=== PATIENT | female | born 1960 | race Caucasian/White ===

== ENCOUNTER 2016-06-22 11:15 | Outpatient (CLI) | payer MEDICAID | END 2016-06-22 11:16 | disposition home or self-care (01) | DX: R10.32 Left lower quadrant pain (principal) ==

== ENCOUNTER 2016-07-27 10:50 | Emergency (ER) | payer MEDICAID ==
[2016-07-27] MEDS ORDERED: IBUPROFEN 400 MG TABLET PO STA (12:13)
[2016-07-27] MEDS ORDERED: ACETAMINOPHEN 325 MG TABLET PO STA (12:13)
[2016-07-27] MEDS ORDERED: IBUPROFEN 400 MG TABLET PO ONE (12:18)
[2016-07-27] MEDS ORDERED: ACETAMINOPHEN 325 MG TABLET PO ONE (12:18)
== END 2016-07-27 15:10 | disposition home or self-care (01) ==
DX: S93.402A Sprain of unspecified ligament of left ankle, initial encounter (principal); S93.602A Unspecified sprain of left foot, initial encounter; S63.91XA Sprain of unspecified part of right wrist and hand, initial encounter; W10.9XXA Fall (on) (from) unspecified stairs and steps, initial encounter; F17.200 Nicotine dependence, unspecified, uncomplicated
CPT/HCPCS: 73130; 73610; 73630; 99283; 99284; A9270

== ENCOUNTER 2016-08-03 16:34 | Outpatient (CLI) | payer MEDICAID | END 2016-08-03 16:35 | disposition home or self-care (01) | DX: R10.32 Left lower quadrant pain (principal); R10.84 Generalized abdominal pain ==

== ENCOUNTER 2016-12-06 21:43 | Outpatient (CLI) | payer MEDICAID | END 2016-12-06 21:44 | disposition critical access hospital (66) | LOC: EMS 21:43 | PROVIDERS: ATTEND Surgery | DX: R05 Cough (principal); R09.89 Other specified symptoms and signs involving the circulatory and respiratory systems | CPT/HCPCS: A0425; A0429 ==

== ENCOUNTER 2016-12-06 22:25 | Emergency (ER) | payer MEDICAID ==
[2016-12-06] MEDS ORDERED: IPRATROPIUM/ALBUTEROL 3 ML NEB INH STA (22:54)
[2016-12-06] MEDS ORDERED: DEXAMETHASONE 10 MG/ML VIAL PO STA (22:54)
[2016-12-06] MEDS ORDERED: DEXAMETHASONE 10 MG/ML VIAL ONE (22:56)
[2016-12-06] MEDS ORDERED: CHERRY SYRUP 10 ML UDC PO ONE (22:56)
[2016-12-06] MEDS ORDERED: IPRATROPIUM/ALBUTEROL 3 ML NEB INH ONE (22:58)
[2016-12-06] MEDS ORDERED: HYDROcod/ACETAM 5/325 MG TABLET PO STA (23:32)
[2016-12-06] MEDS ORDERED: HYDROcod/ACETAM 5/325 MG TABLET ONE (23:35)
--- NOTE | 2016-12-06 23:43 | XRAY Preliminary Report ---
Exam: XR Chest 2 View PA/LAT IMPRESSION: 1. Large lung volumes consistent with emphysema. 2. Mild chronic interstitial prominence. [facility] SITE ID: [id number]
--- NOTE | 2016-12-06 23:46 | XRAY Report ---
EXAM: CHEST RADIOGRAPHY EXAM DATE: 12/06/2016 11:30 PM. CLINICAL HISTORY: Cough with dyspnea. COMPARISON: 06/01/2016. TECHNIQUE: 2 views. FINDINGS: Lungs/Pleura: Large lung volumes consistent with emphysema. Mild chronic interstitial prominence. No alveolar consolidation or pleural effusion. No pneumothorax. Mediastinum: Heart and mediastinal contours are unremarkable. Other: Degenerative changes in the spine. IMPRESSION: 1. Large lung volumes consistent with emphysema. 2. Mild chronic interstitial prominence. [facility] Referring Provider Line: [phone] SITE ID: [id number]
--- NOTE | 2016-12-06 23:48 | ED Physician Documentation ---
PD HPI DYSPNEA - Stated complaint Stated Complaint: COUGH - Chief complaint Chief Complaint: Resp - History obtained from History obtained from: Patient - History of Present Illness Timing - onset: How many weeks ago Timing - duration: Weeks (1) Timing - details: Gradual onset Worsened by: Coughing Associated symptoms: Fever, Cough Similar symptoms before: Has not had sx before - Additional information Additional information: The patient is a 55-year-old female who arrives via ambulance stating "I can't breathe." She has had productive cough for the past week, with fever earlier in the week. Her dyspnea became worse tonight, with uncontrollable coughing. She also reports myalgias, headache, and sore throat. She denies nausea, vomiting, or dysuria. She has a long history of cigarette smoking. She has never used inhalers in the past. Review of Systems Constitutional: reports: Fever, Myalgias Nose: denies: Congestion Throat: reports: Sore throat Cardiac: denies: Chest pain / pressure Respiratory: reports: Dyspnea, Cough GI: denies: Abdominal Pain, Nausea, Vomiting : denies: Dysuria Skin: denies: Rash Musculoskeletal: denies: Back pain, Extremity swelling Neurologic: reports: Headache. 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 - Present Medications Home Medications: Ambulatory Orders Medication Instructions Recorded Confirmed Albuterol Sulfate [Proair Hfa 1 - 2 puffs INH Q4H PRN #1 inhaler 12/07/16 Inhaler] Azithromycin [Zithromax] 250 mg PO DAILY #6 tablet 12/07/16 Inhaler, Assist Devices [Aerovent 1 each MC PRN PRN #1 spacer 12/07/16 Plus] Prednisone 20 mg PO DAILY #10 tablet 12/07/16 - Allergies Allergies/Adverse Reactions: Allergies Allergy/AdvReac Type Severity Reaction Status Date / Time No Known Drug Allergies Allergy Unverified 12/06/16 22:34 - Social History Does the pt smoke?: Yes Smoking Status: Current every day smoker Does the pt drink ETOH?: Yes Does the pt have substance abuse?: No - Immunizations Immunizations are current?: Yes PD ED PE NORMAL - Vitals Vital signs reviewed: Yes (normal) - General General: Alert and oriented X 3, Well developed/nourished, Other (Appears dyspneic, with uncontrollable coughing.) - HEENT HEENT: Atraumatic, Pharynx benign - Neck Neck: Supple, no meningeal sign, No adenopathy, No JVD - Cardiac Cardiac: RRR, No murmur - Respiratory Respiratory: Other (Diffuse expiratory wheezing, without rales or rhonchi.) - Abdomen Abdomen: Soft, Non tender - Back Back: No CVA TTP - Derm Derm: No rash, Other (Mild facial and bilateral shoulder erythema, consistent with mild sunburn.) - Extremities Extremities: No edema, No calf tenderness / cord - Neuro Neuro: Alert and oriented X 3, No motor deficit Results - Vitals Vitals: Oxygen O2 Source Room air - Rads (name of study) CXR Radiology: Prelim report reviewed, EMP read contemporaneously, See rad report ( Large lung volumes consistent with emphysema. Mild chronic interstitial prominence.) PD MEDICAL DECISION MAKING - ED course Complexity details: reviewed results, re-evaluated patient, considered differential, d/w patient ED course: The patient's presentation is most consistent with acute exacerbation of COPD. Chest x-ray reveals large lung volumes consistent with emphysema and chronic interstitial prominence, without acute lobar infiltrate. Treatment in the emergency department included administration of DuoNeb nebulizer, dexamethasone 10 mg orally, and Zithromax 500 mg orally. Vicodin one tablet was administered orally to help relieve her headache. With the above treatment her symptoms markedly improved, as did her pulse oximetry. She is being discharged with prescriptions for albuterol inhaler, spacer device, prednisone, and Zithromax. I discussed with her the expected course of illness, treatment and outpatient follow-up, as well as potentially worrisome signs or symptoms that should prompt reevaluation in the emergency department. I discussed with her the negative impacts cigarette smoking. Departure - Departure Disposition: 01 Home, Self Care Clinical Impression: COPD with acute exacerbation Condition: Stable Instructions: ED COPD Flare Prescriptions: Inhaler, Assist Devices [Aerovent Plus] 1 each MC PRN PRN #1 spacer PRN Reason: Wheezing Prednisone 20 mg PO DAILY #10 tablet Albuterol Sulfate [Proair Hfa Inhaler] 1 - 2 puffs INH Q4H PRN #1 inhaler PRN Reason: Shortness Of Air/Wheezing Azithromycin [Zithromax] 250 mg PO DAILY #6 tablet Comments: Try to stop smoking cigarettes. Use albuterol inhaler with AeroChamber as prescribed. Take Zithromax daily as prescribed. Take prednisone daily as prescribed. Follow-up with primary physician within 1-2 weeks. Call to schedule an appointment. Return to the emergency department if you develop increasing difficulty breathing, or otherwise worsening symptoms. Discharge Date/Time: 12/07/16 00:09
[2016-12-06 23:58] VITALS: BP 107/56
[2016-12-07] MEDS ORDERED: AZITHROMYCIN 250 MG TABLET PO STA (00:03)
[2016-12-07] MEDS ORDERED: AZITHROMYCIN 250 MG TABLET PO ONE ×2 (00:06→00:09)
== END 2016-12-07 00:09 | disposition home or self-care (01) ==
LOC: EDUNIT# → ED 22:25
DX: J44.1 Chronic obstructive pulmonary disease with (acute) exacerbation (principal); F17.210 Nicotine dependence, cigarettes, uncomplicated; R91.8 Other nonspecific abnormal finding of lung field; R06.00 Dyspnea, unspecified; R51 Headache; M79.1 Myalgia
CPT/HCPCS: 71020; 94640; 99283; 99284; A9270; J7620; 94664

== ENCOUNTER 2017-04-23 08:49 | Emergency (ER) | payer MEDICAID ==
--- NOTE | 2017-04-23 08:55 | ED Physician Documentation ---
PD HPI ABD PAIN - Stated complaint Stated Complaint: ABD PX - History obtained from History obtained from: Patient - History of Present Illness Timing - onset: How many days ago (4 days ago and again this morning, had onset of severe steady RUQ abd pain radiating to back, that lasted about 3-4 hours, then faded and went. No pain the next couple days. This morning with same severe pain again, which has decreased on arrival to ED.) Timing - duration: Hours Timing - details: Abrupt onset, Now resolved Quality: Aching, Sharp, Pain Location: RUQ Radiation: Upper back Improved by: No: Eating, Vomiting, Position Worsened by: Moving, Palpation. No: Eating, Position Associated symptoms: Nausea, Vomiting, Loss of appetite. No: Fever, Diarrhea, Constipation, Near syncope / syncope Similar symptoms before: Has not had sx before Recently seen: Not recently seen Review of Systems Constitutional: denies: Fever, Chills Nose: denies: Rhinorrhea / runny nose, Congestion Throat: denies: Sore throat Cardiac: denies: Chest pain / pressure, Palpitations Respiratory: denies: Dyspnea, Cough GI: reports: Abdominal Pain, Nausea, Vomiting. 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 - Present Medications Home Medications: Ambulatory Orders Medication Instructions Recorded Confirmed Inhaler, Assist Devices [Aerovent 1 each MC PRN PRN #1 spacer 12/07/16 04/23/17 Plus] Dicyclomine [Bentyl] 20 mg PO QID PRN #20 capsule 04/23/17 HYDROcod/ACETAM 5/325 [Brightwood 5/325] 1 tab PO Q6H PRN #10 tablet 04/23/17 Sulfamethox/Trimeth 800/160 1 each PO BID #14 tablet 04/23/17 [Bactrim Ds 800/160] - Allergies Allergies/Adverse Reactions: Allergies Allergy/AdvReac Type Severity Reaction Status Date / Time No Known Drug Allergies Allergy Unverified 12/06/16 22:34 - Social History Does the pt smoke?: Yes Smoking Status: Current every day smoker Does the pt drink ETOH?: Yes Does the pt have substance abuse?: No - Immunizations Immunizations are current?: Yes PD ED PE NORMAL - Vitals Vital signs reviewed: Yes - General General: Alert and oriented X 3, No acute distress, Well developed/nourished - HEENT HEENT: PERRL (nonicteric) - Neck Neck: Supple, no meningeal sign, No adenopathy - Cardiac Cardiac: RRR, No murmur - Respiratory Respiratory: Clear bilaterally - Abdomen Abdomen: Normal bowel sounds, Soft, Non tender, Non distended, No organomegaly - Female Female : Deferred - Rectal Rectal: Deferred - Back Back: No CVA TTP - Derm Derm: Normal color, Warm and dry - Neuro Neuro: Alert and oriented X 3, No motor deficit, Normal speech - Psych Psych: Normal mood, Normal affect Results - Vitals Vitals: Vital Signs - 24 hr 04/23/17 04/23/17 04/23/17 08:54 11:32 12:34 Temperature 36.8 C Heart Rate 64 95 89 Respiratory 16 16 16 Rate Blood Pressure 137/87 H 130/66 134/75 H O2 Saturation 94 95 96 Oxygen O2 Source Room air - Labs Labs: Laboratory Tests 04/23/17 04/23/17 04/23/17 09:05 09:30 09:30 WBC 9.3 RBC 4.64 Hgb 14.5 Hct 42.3 MCV 91.1 MCH 31.2 H MCHC 34.3 RDW 12.9 Plt Count 208 MPV 8.5 Neut # 7.4 H Lymph # 1.3 L [place] # 0.5 Eos # 0.1 Baso # 0.0 Absolute Nucleated RBC 0.01 Nucleated RBC % 0.1 Sodium 138 Potassium 3.7 Chloride 100 L Carbon Dioxide 27 Anion Gap 11.0 BUN 16 Creatinine 0.6 Estimated GFR (MDRD) 103 Glucose 100 Calcium 9.6 Total Bilirubin 0.7 AST 22 ALT 18 Alkaline Phosphatase 55 Total Protein 7.3 Albumin 4.1 Globulin 3.2 Albumin/Globulin Ratio 1.3 Lipase 24 Urine Color YELLOW Urine Clarity CLOUDY Urine pH 8.5 H Ur Specific Kosse 1.015 Urine Protein NEGATIVE Urine Glucose (UA) NEGATIVE Urine Ketones NEGATIVE Urine Occult Blood NEGATIVE Urine Nitrite POSITIVE H Urine Bilirubin NEGATIVE Urine Urobilinogen 0.2 (NORMAL) Ur Leukocyte Esterase MODERATE H Urine RBC 0-5 Urine WBC >25 H Ur Squamous Epith Cells NONE SEEN Urine Bacteria Many H Ur Microscopic Review INDICATED Urine Culture Comments INDICATED - Rads (name of study) RUQ U/S Radiology: Prelim report reviewed (normal gallbladder. CBD normal. 4 cm liver cyst. ) PD MEDICAL DECISION MAKING - ED course Complexity details: reviewed results (Her pain episodes sound like biliary colic though U/S appears normal. Consider HIDA scan. No other obvious cause. No pain right now. ), considered differential, d/w patient Departure - Departure Disposition: 01 Home, Self Care Clinical Impression: Right upper quadrant abdominal pain, Biliary colic symptom UTI (urinary tract infection) Qualifiers: Urinary tract infection type: acute cystitis Hematuria presence: without hematuria Qualified Code(s): N30.00 - Acute cystitis without hematuria Condition: Stable Record reviewed to determine appropriate education?: Yes Instructions: ED Abdominal Pain Unkn Cause, ED UTI Cystitis Female Follow-Up: Jose Juan Gtz MD [Provider Admit Priv/Credential] - [facility] [Provider Group] Prescriptions: Dicyclomine [Bentyl] 20 mg PO QID PRN #20 capsule PRN Reason: Spasms HYDROcod/ACETAM 5/325 [Brightwood 5/325] 1 tab PO Q6H PRN #10 tablet PRN Reason: Pain Sulfamethox/Trimeth 800/160 [Bactrim Ds 800/160] 1 each PO BID #14 tablet Comments: You do have a bladder infection but I do not think that is the cause of your upper belly pain episodes. It sounds like gallbladder spasms. Your ultrasound does not show any stones. However you can get spasms despite that. Follow-up at the [facility] would be clinic or surgery clinic regarding further test evaluation of this. Potentially they can do what is called a HIDA scan to assess gallbladder function. Meanwhile if you have pain episodes, he can use dicyclomine and hydrocodone if needed. Low-fat diet. Call for follow-up appointments. Bactrim twice daily for a week for the bladder infection. Discharge Date/Time: 04/23/17 12:34
[2017-04-23 09:29] LABS: BILIRUBIN,URINE NEGATIVE (NEGATIVE); PH,URINE 8.5 PH (5.0-7.5)
[2017-04-23 09:33] LABS: UA w/ MICROSCOPIC CHARGE YES
[2017-04-23 09:46] LABS: UR CULTURE IF IND INDICATED; WBC,URINE >25 /HPF (0-5)
[2017-04-23] MEDS ORDERED: KETOROLAC 60 MG/2 ML VIAL IVP STA (09:46)
[2017-04-23 09:55] LABS: BASOPHILS % (AUTO) 0.5 %; EOSINOPHILS # (AUTO) 0.1 10^3/uL (0.0-0.7); EOSINOPHILS % (AUTO) 0.6 %; HCT - HEMATOCRIT 42.3 % (37.0-47.0); HGB - HEMOGLOBIN 14.5 g/dL (12.0-16.0); LYMPHOCYTES # (AUTO) 1.3 10^3/uL (1.5-3.5); MEAN CORPUSCULAR HEMOGLOBIN 31.2 pg (27.0-31.0); MEAN CORPUSCULAR HGB CONC 34.3 g/dL (32.0-36.0); MEAN CORPUSCULAR VOLUME 91.1 fL (81.0-99.0); MEAN PLATELET VOLUME 8.5 fL (7.9-10.8); MONOCYTES # (AUTO) 0.5 10^3/uL (0.0-1.0); MONOCYTES % (AUTO) 5.3 %; NEUTROPHILS # (AUTO) 7.4 10^3/uL (1.5-6.6); NEUTROPHILS % (AUTO) 79.6 %; NUCLEATED RED BLOOD CELLS AUTO 0.1 /100WBC; RED BLOOD COUNT 4.64 10^6/uL (4.20-5.40); RED CELL DISTRIBUTION WIDTH 12.9 % (12.0-15.0); UNCORRECTED WHITE BLOOD COUNT 9.3 x10^3/uL; WHITE BLOOD COUNT 9.3 x10^3/uL (4.8-10.8)
[2017-04-23] MEDS ORDERED: KETOROLAC 30 MG/ML VIAL ONE (10:01)
[2017-04-23 10:02] LABS: ALBUMIN/GLOBULIN RATIO 1.3 (1.0-2.2); BILIRUBIN,TOTAL 0.7 mg/dL (0.2-1.0); CALCIUM 9.6 mg/dL (8.5-10.3); CREATININE 0.6 mg/dL (0.4-1.0); POTASSIUM 3.7 mmol/L (3.5-5.0); TOTAL PROTEIN 7.3 g/dL (6.7-8.2)
--- NOTE | 2017-04-23 11:27 | Ultrasound Report ---
RIGHT UPPER QUADRANT ULTRASOUND: 04/23/2017 CLINICAL INDICATION: Pain. TECHNIQUE: Real-time scanning was performed with field support representative static images obtained. FINDINGS: The liver measures 16 cm. A 4-mm cyst is noted anteriorly, and a small calcification is n oted posteriorly in the right lobe. No suspicious solid lesion or intrahepatic biliary dilatation is seen. The common bile duct measures 3 mm. The gallbladder is unremarkable. The right kidney measu res 11.3 cm, and demonstrates no hydronephrosis. No free fluid is present. IMPRESSION: NO EVIDENCE OF CHOLELITHIASIS OR BILIARY OBSTRUCTION. JOB #: [id number] EXT JOB #:[id number]
[2017-04-23] MEDS ORDERED: SULFAMETH/TRIMETH DS 800/160 MG TABLET PO STA (11:46)
[2017-04-23] MEDS ORDERED: DICYCLOMINE 10 MG CAPSULE PO STA (11:46)
[2017-04-23] MEDS ORDERED: SULFAMETH/TRIMETH DS 800/160 MG TABLET PO ONE (11:59)
[2017-04-23] MEDS ORDERED: DICYCLOMINE 10 MG CAPSULE PO ONE (12:00)
[2017-04-23 12:38] VITALS: BP 134/75
== END 2017-04-23 12:34 | disposition home or self-care (01) ==
LOC: ED 08:49
DX: R10.11 Right upper quadrant pain (principal); K80.50 Calculus of bile duct without cholangitis or cholecystitis without obstruction; N30.00 Acute cystitis without hematuria; F17.200 Nicotine dependence, unspecified, uncomplicated
CPT/HCPCS: 36415; 76705; 80053; 81001; 83690; 85025; 87086; 87181; 96374; 99283; 99284; A9270; 81003

== ENCOUNTER 2017-08-25 07:19 | Outpatient (CLI) | payer MEDICAID ==
[2017-08-25 10:35] LABS: CHOL/HDL RATIO 3.8 (<4.4); CHOLESTEROL 210 mg/dL; HDL CHOLESTEROL 56 mg/dL; LDL CHOLESTEROL,CALCULATED 139 mg/dL; LDL/HDL RATIO 2.5 (<4.4); VLDL CHOLESTEROL 15 mg/dL
== END 2017-08-25 07:20 | disposition home or self-care (01) ==
LOC: LAB.F 07:19
PROVIDERS: ATTEND Nurse Practitioner Family
DX: Z13.220 Encounter for screening for lipoid disorders (principal)
CPT/HCPCS: 36415; 80061; 83721

== ENCOUNTER 2017-08-31 13:16 | Outpatient (CLI) | payer MEDICAID ==
--- NOTE | 2017-09-13 14:12 | Mammography Report ---
DIGITAL SCREENING MAMMOGRAPHY: 08/31/2017 TECHNIQUE: Bilateral digital CC and MLO projections with an exaggerated right CC projection. COMPARISON: None available. FINDINGS: There are scattered fibroglandular densities. There is asymmetric increased patchy density in the right upper outer quadrant, most likely representing residual breast tissue. However, given the lack of comparison images, followup by spot compression views is suggested. Otherwise, no dominant mass, skin thickening, or suspicious microcalcifications. IMPRESSION: NEGATIVE LEFT BREAST. NEEDS ADDITIONAL EVALUATION OF RIGHT BREAST. BI-RADS 0-INCOMPLETE. COMMENT: IF PRIOR IMAGES FROM THE [facility] CAN BE OBTAINED FOR COMPARISON, THIS MAY OBVIATE THE NEED FOR ADDITIONAL IMAGING. STANDARD QUALIFYING STATEMENTS 1. This examination was reviewed with the aid of Computer-Aided Detection (CAD) . 2. A negative or benign imaging report should not delay biopsy if clinically suspicious findings are present. Consider surgical consultation if warranted. More than 5 % of cancers are not identified by imaging. 3. Dense breasts may obscure an underlying neoplasm. TD: 09/13/2017 14:11 PATRICIA
== END 2017-08-31 13:17 | disposition home or self-care (01) ==
LOC: DI.S 13:16
PROVIDERS: ATTEND Nurse Practitioner Family
DX: Z12.31 Encounter for screening mammogram for malignant neoplasm of breast (principal); R92.8 Other abnormal and inconclusive findings on diagnostic imaging of breast
CPT/HCPCS: 77067

== ENCOUNTER 2017-10-07 08:00 | Outpatient (CLI) | payer MEDICAID | END 2017-10-07 23:59 | LOC: LAB.R 08:00 | PROVIDERS: ATTEND Family Medicine | DX: N39.0 Urinary tract infection, site not specified (principal) | CPT/HCPCS: 87086 ==

== ENCOUNTER 2017-10-07 08:03 | Day surgery (SDC) | payer MEDICAID ==
[2017-10-07] MEDS ORDERED: LACTATED RINGERS 1,000 ML IV ONE (08:52)
[2017-10-07] MEDS ORDERED: fentaNYL 250 MCG/5 ML VIAL IVP ONE (10:59)
[2017-10-07] MEDS ORDERED: MIDAZOLAM 2 MG/2 ML VIAL IVP ONE (10:59)
[2017-10-07 11:42] VITALS: BP 125/54
== END 2017-10-07 08:04 | disposition home or self-care (01) ==
LOC: SDS 08:03
PROVIDERS: ATTEND Internal Medicine Gastroenterology
PROC: 0DJD8ZZ Inspection of Lower Intestinal Tract, Via Natural or Artificial Opening Endoscopic (ICD-10-PCS; principal; 2017-10-07 09:45)
DX: Z12.11 Encounter for screening for malignant neoplasm of colon (principal); E78.5 Hyperlipidemia, unspecified; Z87.891 Personal history of nicotine dependence
CPT/HCPCS: 45378; J3010; J7120

== ENCOUNTER 2017-10-20 08:29 | Outpatient (CLI) | payer MEDICAID ==
--- NOTE | 2017-10-20 11:04 | Ultrasound Report ---
RIGHT BREAST ULTRASOUND: 10/20/2017 CLINICAL INDICATION: Persistent nodules on diagnostic mammogram. FINDINGS: Ultrasound of the right breast was performed. At the 9 o'clock position, 4 cm from the nipple, there is a cluster of cysts, measuring 8 x 5 x 4 mm. At the 11:30 position, 6 cm from the nipple, there is a simple cyst, measuring 6 x 5 x 3 mm. No sonographically suspicious findings are appreciated. IMPRESSION: BENIGN FINDINGS, WITH CYSTS ACCOUNTING FOR THE MAMMOGRAPHIC ABNORMALITIES. RECOMMENDATION: Routine annual screening unless otherwise clinically indicated. BI-RADS CATEGORY 2 BENIGN FINDINGS. TD: 10/20/2017 11:03
--- NOTE | 2017-10-20 13:40 | Mammography Report ---
DIAGNOSTIC RIGHT MAMMOGRAM: 10/20/2017 CLINICAL INDICATION: Possible nodules on screening. TECHNIQUE: Right true lateral and spot compression views. COMPARISON: 08/31/2017. FINDINGS: The right breast demonstrates scattered fibroglandular densities. Two circumscribed nodules persist, one at the 12 o'clock position measuring 6 mm, and one in the 9 o'clock position measuring 7 mm. Please also refer to right breast ultrasound of the same day. IMPRESSION: SIMPLE CYSTS, ACCOUNTING FOR THE MAMMOGRAPHIC ABNORMALITIES. RECOMMENDATION: Routine annual screening unless otherwise clinically indicated. BI-RADS CATEGORY 2 - BENIGN FINDINGS. STANDARD QUALIFYING STATEMENTS: 1. This examination was reviewed with the aid of Computer-Aided Detection (CAD). 2. A negative or benign imaging report should not delay biopsy if clinically suspicious findings are present. Consider surgical consultation if warranted. More than 5% of cancers are not identified by imaging. 3. Dense breasts may obscure an underlying neoplasm. TD: 10/20/2017 13:39
== END 2017-10-20 08:30 | disposition home or self-care (01) ==
LOC: DI 08:29
PROVIDERS: ATTEND Nurse Practitioner Family
DX: Z12.31 Encounter for screening mammogram for malignant neoplasm of breast (principal); N60.01 Solitary cyst of right breast
CPT/HCPCS: 76642

== ENCOUNTER 2017-11-12 08:00 | Outpatient (CLI) | payer MEDICAID | END 2017-11-12 08:01 | disposition home or self-care (01) | LOC: LAB.R 08:00 | PROVIDERS: ATTEND Family Medicine | DX: N39.0 Urinary tract infection, site not specified (principal) | CPT/HCPCS: 87086; 87181 ==

== ENCOUNTER 2017-11-12 12:06 | Outpatient (CLI) | payer MEDICAID ==
--- NOTE | 2017-11-12 16:22 | XRAY Report ---
TWO VIEW BILATERAL KNEES: 11/12/2017 CLINICAL INDICATION: Knee pain. FINDINGS: Frontal and lateral views of the bilateral knees demonstrate no evidence of fracture. The joint spaces are preserved. No effusion is present. IMPRESSION: NORMAL BILATERAL KNEES. TD: 11/12/2017 13:19
--- NOTE | 2017-11-12 16:23 | XRAY Report ---
THREE VIEW LUMBAR SPINE: 11/12/2017 CLINICAL INDICATION: Chronic back pain. FINDINGS: AP, lateral, coned down views of the lumbar spine demonstrate degenerative changes, worst at L5-S1. There is no evidence of fracture or subluxation. The bowel gas pattern is normal. IMPRESSION: DEGENERATIVE DISK AND FACET DISEASE, WORST AT L5-S1. TD: 11/12/2017 13:25
== END 2017-11-12 12:07 | disposition home or self-care (01) ==
LOC: DI.S 12:06
PROVIDERS: ATTEND Nurse Practitioner Family
DX: M47.897 Other spondylosis, lumbosacral region (principal); M51.36 Other intervertebral disc degeneration, lumbar region; M25.561 Pain in right knee; N39.0 Urinary tract infection, site not specified
CPT/HCPCS: 72100; 73565; 87086; 87181

== ENCOUNTER 2017-11-29 14:00 | Outpatient (CLI) | payer MEDICAID ==
[2017-11-29 18:22] LABS: BILIRUBIN,URINE NEGATIVE (NEGATIVE); GLUCOSE, URINE (UA) NEGATIVE (NEGATIVE); KETONES,URINE (UA) NEGATIVE (NEGATIVE); LEUKOCYTE ESTERASE, URINE TRACE (NEGATIVE); NITRITE,URINE NEGATIVE (NEGATIVE); OCCULT BLOOD,URINE NEGATIVE (NEGATIVE); PROTEIN,URINE NEGATIVE (NEGATIVE); UROBILINOGEN,URINE 0.2 (NORMAL) E.U./dL (NORMAL)
[2017-11-29 18:26] LABS: CLARITY,URINE CLEAR (CLEAR)
[2017-11-29 18:35] LABS: BACTERIA,URINE Rare /HPF (None Seen); RBC,URINE None Seen /HPF (0-5); SQUAMOUS EPITHELIAL CELL,UR MANY Squamous (<= Few)
== END 2017-11-29 14:01 ==
LOC: LAB.R 14:00
PROVIDERS: ATTEND Nurse Practitioner Family
DX: N39.0 Urinary tract infection, site not specified (principal)
CPT/HCPCS: 81001; 87086

== ENCOUNTER 2018-07-13 15:27 | Outpatient (CLI) | payer MEDICAID ==
--- NOTE | 2018-07-13 16:31 | CT Report ---
Reason: TOBACCO ABUSE,CONTINUOUS Procedure Date: 07/13/2018 Accession Number: [id number] / [id number] Procedure: CT - Chest/Lung Screen Low Dose W/O CPT Code: FULL RESULT: EXAM CT LUNG SCREEN EXAM DATE: 07/13/2018 03:46 PM. HISTORY: 57-year-old patient with [id number] smoking history. Currently smoking: No. Years since quitting: Quit 6 and 3 months ago. COMPARISON: None. TECHNIQUE: CT examination of the entire thorax without contrast was performed using low-dose technique. Thin section coronal, axial, sagittal and MIP axial images were obtained. In accordance with CT protocol optimization, one or more of the following dose reduction techniques were utilized for this exam: automated exposure control, adjustment of mA and/or KV based on patient size, or use of iterative reconstructive technique. FINDINGS: Nodules: Right upper lobe: 4 mm nodule image 70 series 4. Right middle lobe: None. Right lower lobe: None. Left upper lobe: 3 mm nodule image 27 series 4. 4 mm nodule image 39 series 4. Left lower lobe: None. Emphysema: Moderate near the lung apices. Pleura: Unremarkable. Aorta: Mildly to moderately calcified. Mediastinum: Unremarkable. Coronary calcifications: Mild to moderate calcifications. Other pulmonary findings: None. Other extrapulmonary findings: Calcification at the hepatic dome, possibly prior granulomatous disease. IMPRESSION: Lung-RADS ASSESSMENT CATEGORY: 3 - probably benign. Probability of malignancy: 1-2%. RECOMMENDATION: Six-month follow-up low dose screening CT of the chest as per lung RADS guidelines. [facility]
== END 2018-07-13 15:28 | disposition home or self-care (01) ==
LOC: DI 15:27
PROVIDERS: ATTEND Registered Nurse
DX: Z12.2 Encounter for screening for malignant neoplasm of respiratory organs (principal); J43.9 Emphysema, unspecified; F17.210 Nicotine dependence, cigarettes, uncomplicated

== ENCOUNTER 2018-08-05 23:26 | Outpatient (CLI) | payer MEDICAID | END 2018-08-05 23:27 | disposition critical access hospital (66) | LOC: EMS 23:26 | PROVIDERS: ATTEND Surgery | DX: R06.02 Shortness of breath (principal) ==

== ENCOUNTER 2018-08-05 23:58 | Emergency (ER) | payer MEDICAID ==
[2018-08-06] MEDS ORDERED: LORazepam 0.5 MG TABLET PO STA (01:33)
--- NOTE | 2018-08-06 01:36 | ED Physician Documentation ---
History of Present Illness - Stated complaint Stated Complaint: SOA - Chief complaint Chief Complaint: General - History obtained from History obtained from: Patient - History of Present Illness Timing: Today - Additonal information Additional information: 57-year-old female who is grieving over a 26-year-old daughter who of a drug overdose in May of last year has developed panic attacks this evening. She was having a hard time breathing and she ended up calling the ambulance. As she arrives here now she is teary-eyed and breathing normally. She does have a counselor she has been seen she has been placed on some trazodone she is taking 100 mg at night with poor sleep. She did take some Ativan initially and this helped a lot but she discontinued it with concerns about addiction. She states that she is had 12 hours of sleep total in the past 3 days. She is feeling extreme grief. Review of Systems Constitutional: reports: Fatigue. denies: Fever, Chills Eyes: denies: Decreased vision Ears: denies: Ear pain Nose: denies: Rhinorrhea / runny nose, Congestion Throat: denies: Sore throat Cardiac: reports: Chest pain / pressure. denies: Palpitations, Pedal edema, Calf pain Respiratory: reports: Dyspnea. denies: Cough GI: denies: Abdominal Pain, Nausea, Vomiting, Constipation, Diarrhea : denies: Dysuria, Frequency Musculoskeletal: denies: Neck pain, Back pain, Extremity pain Neurologic: denies: Generalized weakness, Focal weakness, Numbness Psychiatric: reports: Anxiety, Insomnia. 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 HEENT: Cataracts - Present Medications Home Medications: Ambulatory Orders Medication Instructions Recorded Confirmed Acetaminophen [Tylenol] 650 mg PO Q6H PRN 10/07/17 10/07/17 LORazepam [Ativan] 1 mg PO Q6HR PRN #20 tablet 08/06/18 - Allergies Allergies/Adverse Reactions: Allergies Allergy/AdvReac Type Severity Reaction Status Date / Time No Known Drug Allergies Allergy Unverified 04/26/18 08:33 - Social History Does the pt smoke?: Yes Smoking Status: Current every day smoker Does the pt drink ETOH?: Yes Does the pt have substance abuse?: No - Immunizations Immunizations are current?: Yes PD ED PE NORMAL - Vitals Vital signs reviewed: Yes (hypertensive ) - General General: Alert and oriented X 3, No acute distress, Well developed/nourished - HEENT HEENT: Atraumatic, PERRL, EOMI, Ears normal - Neck Neck: Supple, no meningeal sign, No bony TTP - Cardiac Cardiac: RRR, No murmur - Respiratory Respiratory: No respiratory distress, Clear bilaterally - Abdomen Abdomen: Soft, Non tender - Back Back: No CVA TTP, No spinal TTP - Derm Derm: Normal color, Warm and dry, No rash - Extremities Extremities: No deformity, No edema - Neuro Neuro: Alert and oriented X 3, oracle database architect 2-12 intact, No motor deficit, No sensory deficit, Normal speech Eye Opening: Spontaneous Motor: Obeys Commands Verbal: Oriented GCS Score: 15 - Psych Psych: Other (mood is greiving affect is labile) Results - Vitals Vitals: Vital Signs - 24 hr 08/06/18 00:01 Temperature 36.2 C L Heart Rate 65 Respiratory 16 Rate Blood Pressure 153/111 H O2 Saturation 96 Oxygen O2 Source Room air PD MEDICAL DECISION MAKING - ED course Complexity details: reviewed old records, reviewed results, re-evaluated patient, considered differential, d/w patient ED course: 57-year-old mother grieving the loss of a child has developed acute anxiety with an attack of dyspnea. She has resolved her panic attack and here in the emergency department has a normal examination.We did discuss the loss of her child and her grieving process. We did discuss her sleep and she does not want to wait to see the mental health social worker in the morning she does not feel there are any specific resources that she will need. She does not think that she will need a psychiatric admission but she does feel that some additional medication would help. We discussed increasing her dose of trazodone as well as addition of as needed Ativan. Departure - Departure Disposition: 01 Home, Self Care Clinical Impression: Grief at loss of child, Panic attack as reaction to stress Condition: Stable Instructions: ED Panic Attack, ED Grief Reaction, ED Stress React Follow-Up: Katus,Marleni, NUCLEAR EQUIPMENT RESEARCH ENGINEER [Primary Care Provider] - Prescriptions: LORazepam [Ativan] 1 mg PO Q6HR PRN #20 tablet PRN Reason: Anxiety Comments: This morning it appears you have a grief reaction to exceptional loss. A problem with sleep is common and my recommendation is that you increase your dose of trazodone to 150 mg at night and use the Ativan as needed for acute anxiety.
[2018-08-06 02:04] VITALS: BP 130/79
== END 2018-08-06 02:06 | disposition home or self-care (01) ==
LOC: EDUNIT# → ED 23:58
DX: F43.20 Adjustment disorder, unspecified (principal); F17.200 Nicotine dependence, unspecified, uncomplicated
CPT/HCPCS: 99283; A9270

== ENCOUNTER 2018-11-21 01:15 | Emergency (ER) | payer MEDICAID ==
[2018-11-21 01:30] VITALS: BP 147/101
--- NOTE | 2018-11-21 03:29 | ED Physician Documentation ---
PD HPI LOWER EXT INJURY - Stated complaint Stated Complaint: FOOT LAC - Chief complaint Chief Complaint: Laceration - History obtained from History obtained from: Patient - History of Present Illness PD HPI LOW EXT INJURY LOCATION: Right, Foot Type of injury: Laceration Where injury occurred: Home Timing - onset: Today Timing - details: Abrupt onset Associated symptoms: No: Weakness, Numbness, Tingling, Swelling, Discolored Recently seen: Not recently seen - Additional information Additional information: sustained right foot injury, was standing on a edge of brick, lost footing and slipped, foot scraped against edge of brick Review of Systems Skin: reports: Laceration (s) Musculoskeletal: denies: Joint pain, Pain with weight bearing Neurologic: denies: Focal weakness, Numbness PD PAST MEDICAL HISTORY - Past Medical History Cardiovascular: None Respiratory: None Endocrine/Autoimmune: None GI: Cholelithiasis : Chronic bladder infection HEENT: None Psych: Claustrophobia Musculoskeletal: Rheumatoid arthritis, Chronic back pain Derm: None - Past Surgical History 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: Cataracts - Present Medications Home Medications: Ambulatory Orders Medication Instructions Recorded Confirmed Acetaminophen [Tylenol] 650 mg PO Q6H PRN 10/07/17 10/07/17 LORazepam [Ativan] 1 mg PO Q6HR PRN #20 tablet 08/06/18 - Allergies Allergies/Adverse Reactions: Allergies Allergy/AdvReac Type Severity Reaction Status Date / Time No Known Drug Allergies Allergy Unverified 10/07/17 08:33 - Social History Does the pt smoke?: Yes Smoking Status: Current every day smoker Does the pt drink ETOH?: Yes Does the pt have substance abuse?: No - Immunizations Immunizations are current?: Yes PD ED PE NORMAL - Vitals Vital signs reviewed: Yes - General General: Alert and oriented X 3, No acute distress, Well developed/nourished - Extremities Extremities: Normal ROM s pain - Neuro Neuro: No motor deficit, No sensory deficit PD ED PE EXPANDED - Extremities Feet visual: 1 - tenderness (partially avusled skin to level of (intact) dermis. no bony tenderness. avulsed skin flap is approximately 1cm diameter but remains attached by small pedicle) Results - Vitals Vitals: Oxygen O2 Source Room air PD MEDICAL DECISION MAKING - ED course Complexity details: considered differential, d/w patient ED course: avulsed skin removed with scissors, wound is clean, bacitracin and dressing applied Departure - Departure Disposition: 01 Home, Self Care Clinical Impression: Avulsion of skin of right foot Qualifiers: Encounter type: initial encounter Qualified Code(s): S91.301A - Unspecified open wound, right foot, initial encounter Condition: Good Instructions: ED Avulsion Dermal Follow-Up: Marleni Rosado ARNP [Primary Care Provider] - Forms: Activity restrictions Discharge Date/Time: 11/21/18 03:55
[2018-11-21] MEDS ORDERED: BACITRACIN OINT TOP STA (03:39)
== END 2018-11-21 03:55 | disposition home or self-care (01) ==
LOC: ED 01:15
DX: S91.311A Laceration without foreign body, right foot, initial encounter (principal); W22.09XA Striking against other stationary object, initial encounter; Y93.01 Activity, walking, marching and hiking; Y92.009 Unspecified place in unspecified non-institutional (private) residence as the place of occurrence of the external cause; F17.200 Nicotine dependence, unspecified, uncomplicated
CPT/HCPCS: 99283

== ENCOUNTER 2019-01-27 10:45 | Outpatient (CLI) | payer MEDICAID ==
--- NOTE | 2019-01-30 08:41 | CT Report ---
Reason: TOBACCO ABUSE, CONTINUOUS Procedure Date: 01/27/2019 Accession Number: [id number] / [id number] Procedure: CT - Low Dose Lung Cancer Screen CPT Code: FULL RESULT: EXAM CT LUNG SCREEN EXAM DATE: 01/27/2019 11:08 AM. HISTORY: 58-year-old patient with [id number] smoking history. Currently smoking: Yes. Years since quittin. COMPARISON: CHEST SCREEN LOW DOSE W/O 07/13/2018 3:39 PM. TECHNIQUE: CT examination of the entire thorax without contrast was performed using low-dose technique. Thin section coronal, axial, sagittal and MIP axial images were obtained. In accordance with CT protocol optimization, one or more of the following dose reduction techniques were utilized for this exam: automated exposure control, adjustment of mA and/or KV based on patient size, or use of iterative reconstructive technique. FINDINGS: Nodules: Right upper lobe: Stable 3 mm pulmonary nodule image 33, series 4. Stable 3 mm pulmonary nodule image 71, series 4. Right middle lobe: None. Right lower lobe: None. Left upper lobe: Stable 3 mm pulmonary nodule image 23, series 4. Stable 3 mm pulmonary nodule image 35, series 4. Left lower lobe: None. Emphysema: None. Pleura: Unremarkable. Aorta: Mild atherosclerotic calcium. Mediastinum: Unremarkable. Coronary calcifications: Moderate coronary artery calcium involving circumflex and left anterior descending coronary arteries. Other pulmonary findings: Stable biapical bleb formation. Other extrapulmonary findings: Stable mild degenerative disk changes. IMPRESSION: Lung-RADS ASSESSMENT CATEGORY: 2 - benign appearance or behavior. Probability of malignancy: Less than 1%. RECOMMENDATION: Recommended follow up based on ACR Lung-RADS Version 1.1 Guidelines. RADIA
== END 2019-01-27 10:46 | disposition home or self-care (01) ==
LOC: DI 10:45
PROVIDERS: ATTEND Registered Nurse
DX: Z12.2 Encounter for screening for malignant neoplasm of respiratory organs (principal); F17.200 Nicotine dependence, unspecified, uncomplicated

== ENCOUNTER 2019-03-08 08:17 | Outpatient (CLI) | payer MEDICAID ==
--- NOTE | 2019-03-08 09:52 | Mammography Report ---
Reason: ROUTINE MAMMO Procedure Date: 03/08/2019 Accession Number: [id number] / [id number] Procedure: [facility] - Screening Mammo w/Octavio CPT Code: FULL RESULT: EXAM: Screening Mammo w/Octavio DATE: 03/08/2019 8:44 AM CLINICAL HISTORY: Screening encounter. TECHNIQUE: (B) - Bilateral CC and MLO views were obtained. COMPARISON: 10/20/2017 and 08/31/2017. PARENCHYMAL PATTERN: (F) - The breast(s) demonstrate(s) diffuse fatty replacement. FINDINGS: Stable right breast nodules previously characterized as simple cysts by ultrasound are redemonstrated without change, typically benign. There are no suspicious masses, calcifications, or areas of distortion. IMPRESSION: Benign findings. BI-RADS category 2. RECOMMENDATION: (ANNUAL) - Recommend routine annual screening mammography. BI-RADS CATEGORY: (2) - Benign Findings. STANDARD QUALIFYING STATEMENTS: 1. This examination was not reviewed with the aid of Computer-Aided Detection (CAD). 2. A negative or benign imaging report should not preclude biopsy if clinically suspicious findings are present. 3. Dense breasts may obscure an underlying neoplasm. 4. This examination was reviewed with the aid of 3D breast imaging (tomosynthesis).
== END 2019-03-08 08:18 | disposition home or self-care (01) ==
LOC: DI 08:17
DX: Z12.31 Encounter for screening mammogram for malignant neoplasm of breast (principal)
CPT/HCPCS: 77063; 77067

== ENCOUNTER 2019-03-08 08:18 | Outpatient (CLI) | payer MEDICAID ==
--- NOTE | 2019-03-09 08:21 | DEXA Report ---
Reason: POSTMENOPAUSAL Procedure Date: 03/08/2019 Accession Number: [id number] / [id number] Procedure: DEX - Dexa Spine and/or Hip CPT Code: FULL RESULT: EXAM: Dexa Spine and/or Hip DATE: 03/08/2019 8:40 AM CLINICAL HISTORY: POSTMENOPAUSAL TECHNIQUE: Dual energy x-ray absorptiometry (DXA) was performed on a [employer] System. Regions measured are the AP Spine, femoral neck, and if needed forearm. COMPARISON: None. In accordance with the International Society for Clinical Densitometry (ISCD) guidelines, data from previous exams may be reanalyzed using current recommendations and techniques. This is done to allow a more accurate basis for comparison with the current study. FINDINGS: The data for the lumbar spine is as follows: BMD (g/cm/cm) T-SCORE Z-SCORE REGION L1 1.006 -1.0 -0.4 L2 1.011 -1.6 -1.0 L3 1.148 -0.4 0.2 L4 1.266 0.6 1.2 TOTAL 1.117 -0.5 0.1 NOTE: All evaluable vertebrae are used for classification The data for the hip is as follows: BMD (g/cm/cm) T-SCORE Z-SCORE REGION Neck 0.896 -1.0 -0.2 TOTAL 0.943 -0.5 0.0 IMPRESSION: THE WHO CLASSIFICATION BASED ON THE INTERNATIONAL REFERENCE STANDARD IS NORMAL. THE FRACTURE RISK IS NOT INCREASED. RECOMMENDATION: Patients with diagnosis of osteoporosis or osteopenia should have regular bone mineral density assessment. For those eligible for Medicare, routine testing is allowed once every 2 years. Testing frequency can be increased for patients who have rapidly progressing disease or for those who are receiving medical therapy to restore bone mass. COMMENT: World Health Organization (WHO) definitions for osteoporosis and osteopenia: NORMAL BMD: T-score at -1.0 or higher, fracture risk is low OSTEOPENIA BMD: T-score between -1.0 and -2.5, fracture risk is increased. OSTEOPOROSIS BMD: T-score at -2.5 or lower, fracture risk is high. National Osteoporosis Foundation recommends: 1. Obtain adequate dietary calcium (at least 1200 mg per day) and vitamin D (400-800 international units per day). 2. Participate, as appropriate, in regular weightbearing and muscle-strengthening exercise. 3. Avoid tobacco use and reduce alcohol and caffeine intake. 4. For more detailed information see the website at www.NOF.org.
== END 2019-03-08 08:19 | disposition home or self-care (01) ==
LOC: DI 08:18
PROVIDERS: ATTEND Registered Nurse
DX: Z78.0 Asymptomatic menopausal state (principal)
CPT/HCPCS: 77080

== ENCOUNTER 2019-04-11 07:19 | Outpatient (CLI) | payer MEDICAID ==
[2019-04-11 10:08] LABS: BASOPHILS % (AUTO) 0.8 %; EOSINOPHILS # (AUTO) 0.5 10^3/uL (0.0-0.7); EOSINOPHILS % (AUTO) 9.6 %; HGB - HEMOGLOBIN 15.1 g/dL (12.0-16.0); LYMPHOCYTES % (AUTO) 39.7 %; MEAN CORPUSCULAR HEMOGLOBIN 30.9 pg (27.0-31.0); MEAN CORPUSCULAR HGB CONC 32.3 g/dL (32.0-36.0); MEAN CORPUSCULAR VOLUME 95.9 fL (81.0-99.0); MEAN PLATELET VOLUME 10.9 fL (7.9-10.8); MONOCYTES # (AUTO) 0.5 10^3/uL (0.0-1.0); MONOCYTES % (AUTO) 9.8 %; NEUTROPHILS % (AUTO) 39.9 %; PLT - PLATELET COUNT 197 10^3/uL (130-450); RED BLOOD COUNT 4.88 10^6/uL (4.20-5.40); RED CELL DISTRIBUTION WIDTH 14.6 % (12.0-15.0); WHITE BLOOD COUNT 5.1 x10^3/uL (4.8-10.8)
[2019-04-11 11:55] LABS: ALBUMIN 4.2 g/dL (3.2-5.5); ALBUMIN/GLOBULIN RATIO 1.2 (1.0-2.2); BILIRUBIN,TOTAL 0.6 mg/dL (0.2-1.0); CALCIUM 9.1 mg/dL (8.5-10.3); CREATININE 0.5 mg/dL (0.4-1.0); TOTAL PROTEIN 7.6 g/dL (6.7-8.2)
[2019-04-11 12:15] LABS: HB2 TOTAL 15.8 g/dL; HEMOGLOBIN A1C 0.6 g/dL; HEMOGLOBIN A1C % 5.6 % (4.6-6.2)
== END 2019-04-11 07:20 | disposition home or self-care (01) ==
LOC: LAB.S 07:19
PROVIDERS: ATTEND Registered Nurse
DX: R10.32 Left lower quadrant pain (principal)
CPT/HCPCS: 36415; 80053; 82150; 83036; 83690; 84443; 85025

== ENCOUNTER 2019-04-12 08:00 | Outpatient (CLI) | payer MEDICAID ==
--- NOTE | 2019-04-12 15:48 | XRAY Report ---
Reason: ABD PAIN, LLQ Procedure Date: 04/12/2019 Accession Number: [id number] / [id number] Procedure: XRS - Abdomen 2 View X-Ray CPT Code: 95371 FULL RESULT: EXAM: ABDOMEN RADIOGRAPHY EXAM DATE: 04/12/2019 08:12 AM. CLINICAL HISTORY: ABD PAIN, LLQ. COMPARISON: ABDOMEN 2 VIEW 06/22/2016 11:25 AM. TECHNIQUE: 2 views. FINDINGS: Lung Bases: Unremarkable. Bowel Gas Pattern: Nonspecific bowel gas pattern. Free Air: None. Other: None. IMPRESSION: Negative 2-view abdomen x-ray. RADIA
== END 2019-04-12 08:01 | disposition home or self-care (01) ==
LOC: DI.S 08:00
PROVIDERS: ATTEND Registered Nurse
DX: R10.32 Left lower quadrant pain (principal)
CPT/HCPCS: 74019

== ENCOUNTER 2019-05-09 11:53 | Emergency (ER) | payer MEDICAID ==
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
[2019-05-09] MEDS ORDERED: IOVERSOL 320 100 ML VIAL IVP ONE ×2 (14:01→15:40)
[2019-05-09 14:15] LABS: BASOPHILS % (AUTO) 0.5 %; EOSINOPHILS # (AUTO) 0.1 10^3/uL (0.0-0.7); EOSINOPHILS % (AUTO) 1.4 %; HGB - HEMOGLOBIN 14.6 g/dL (12.0-16.0); LYMPHOCYTES % (AUTO) 31.8 %; MEAN CORPUSCULAR HEMOGLOBIN 32.7 pg (27.0-31.0); MEAN CORPUSCULAR HGB CONC 33.9 g/dL (32.0-36.0); MEAN CORPUSCULAR VOLUME 96.4 fL (81.0-99.0); MEAN PLATELET VOLUME 10.1 fL (7.9-10.8); MONOCYTES # (AUTO) 0.5 10^3/uL (0.0-1.0); NEUTROPHILS # (AUTO) 3.6 10^3/uL (1.5-6.6); PLT - PLATELET COUNT 200 10^3/uL (130-450); RED BLOOD COUNT 4.47 10^6/uL (4.20-5.40); WHITE BLOOD COUNT 6.3 x10^3/uL (4.8-10.8)
[2019-05-09 14:58] LABS: ALBUMIN 4.2 g/dL (3.2-5.5); ALBUMIN/GLOBULIN RATIO 1.2 (1.0-2.2); CREATININE 0.6 mg/dL (0.4-1.0); TOTAL PROTEIN 7.8 g/dL (6.7-8.2)
--- NOTE | 2019-05-09 16:15 | CT Report ---
Reason: dizzy, neck pain Procedure Date: 05/09/2019 Accession Number: [id number] / [id number] Procedure: CT - ANGIO HEAD W/WO CPT Code: Final Report FULL RESULT: CT HEAD WITHOUT AND WITH CONTRAST AND CT ANGIOGRAM HEAD INDICATION: 58-year-old female. Dizziness and neck pain. TECHNIQUE: Head CT Sequential 5 mm axial images were obtained through the brain, prior to and following the CT angiogram. CT angiogram head 80 cc of Optiray 320 contrast were injected at a rapid rate through a large bore, antecubital intravenous catheter. The head was scanned helically during arterial phase. The data was reconstructed into 0.5 mm axial images. In addition, MIP reconstructions have been generated in multiple projections to allow better assessment of the intracranial arteries. In accordance with CT protocol optimization, one or more of the following dose reduction techniques were utilized for this exam: automated exposure control, adjustment of mA and/or KV based on patient size, or use of iterative reconstructive technique. COMPARISON: None. FINDINGS: Head CT Ventricular size is normal. Attenuation of cortex and white matter appears normal. There is no intracranial hemorrhage or abnormal extra-axial fluid collection. No mass effect or midline shift. No enhancing space-occupying mass lesion is demonstrated. There appears to be normal intravascular contrast enhancement in the dural venous sinuses and deep venous structures. The skull and skull base appear intact. The middle ear cavities and imaged mastoid air cells appear clear. Mucous retention cysts are identified in the maxillary sinuses. The imaged paranasal sinuses are otherwise essentially clear. CT angiogram head Anterior circulation: There is minimal calcified atherosclerotic plaque in the carotid siphons without associated ICA stenosis. An infundibulum is identified at the origin of the right posterior communicating artery. There is a small, wide necked, conical outpouching arising from the undersurface of the supraclinoid left ICA at expected location of the origin of the posterior communicating artery. The neck appears to measure about 2 mm and the lesion points inferiorly for roughly 1.5-2 mm. The posterior communicating artery itself has not been resolved and the precise relationship to this small outpouching can therefore not be determined. No other potential ICA aneurysm is demonstrated. The A1 segments of the anterior cerebral arteries are codominant. There probably is a tiny anterior communicating artery. There appears to be good filling of A2 and distal NATALY branches bilaterally. No obvious NATALY branch occlusion is demonstrated. The middle cerebral arteries are unremarkable. No aneurysm is demonstrated and there is no obvious occlusion or hemodynamically significant stenosis affecting the main branches of either MCA. There appear to be a similar number of opacified M3 and M4 branches bilaterally. Posterior circulation: The vertebral arteries and the PICAs are patent. No aneurysm is seen at either PICA origin. There is minor calcified atherosclerotic plaque in the proximal V4 segment of the right vertebral artery without significant associated stenosis. The basilar artery, superior cerebellar arteries and posterior cerebral arteries appear widely patent. There is a patent right posterior communicating artery. No aneurysms are seen arising from the basilar artery trunk or apex. IMPRESSION: Head CT No acute intracranial pathology is demonstrated. In particular, there is no intracranial hemorrhage and there is no evidence of an acute, large vessel territory cortical infarction. CT angiogram head 1. Small (roughly 2 mm) wide necked, conical outpouching arising from undersurface supraclinoid segment, left ICA at expected location of the posterior communicating artery as described. The posterior communicating artery itself has not been resolved and the precise relationship to this outpouching can therefore not be determined. This makes it impossible to differentiate between infundibulum and aneurysm. 2. Otherwise unremarkable intracranial CT angiogram. In particular, no other potential aneurysm is identified. In addition, there is no evidence of occlusion or hemodynamically significant stenosis affecting main branches of the anterior or posterior circulations.
--- NOTE | 2019-05-09 16:26 | CT Report ---
Reason: dizzy, neck pain Procedure Date: 05/09/2019 Accession Number: [id number] / [id number] Procedure: CT - ANGIO NECK W CPT Code: Final Report FULL RESULT: CT ANGIOGRAM NECK INDICATION: 58-year-old female with neck pain and dizziness. Please assess. TECHNIQUE: 80 mL of Optiray 320 contrast were injected at a rapid rate through a large bore, right antecubital intravenous catheter. The neck was scanned helically during arterial phase. The data was reconstructed into 0.5 mm axial images. In addition, MIP reconstructions have been generated in multiple projections to allow better assessment of the extracranial carotid and vertebral arteries. The significant arterial stenoses will be assessed using NASCET type measurements. In accordance with CT protocol optimization, one or more of the following dose reduction techniques were utilized for this exam: automated exposure control, adjustment of mA and/or KV based on patient size, or use of iterative reconstructive technique. COMPARISON: None. FINDINGS: There is normal branching of the aortic arch. Atherosclerotic disease is identified in the arch. There are calcified plaques at the origins of the first order supra-aortic arteries without significant associated stenosis. Right carotid artery: The proximal common carotid artery is partially obscured due to beam hardening artifact from dense contrast and the adjacent venous structures. The mid and distal thirds of the common carotid artery are well seen and appear widely patent throughout. There is calcified plaque at the carotid bifurcation extending into the carotid bulb with associated minor narrowing. The narrowing appears to be most prominent in the carotid bulb where the lumen is reduced to about 4 mm. More distally the artery measures about 3.8 mm diameter. This is consistent with a 0% NASCET type stenosis. Left carotid artery: There is calcified plaque at the carotid bifurcation extending into the carotid bulb without associated stenosis. Right vertebral artery: Mildly hypoplastic. Patent from origin to distal V3 segment without focal pathology. Left vertebral artery: Patent at origin and throughout the V1, V2 and V3 segments without significant focal narrowing. A few bullae are demonstrated at the pulmonary apices. No discrete mass/nodule is identified in the imaged upper lungs. IMPRESSION: 1. There is atherosclerotic disease at the carotid bifurcations without significant associated carotid artery stenosis. 2. Unremarkable appearance of the extracranial vertebral arteries without evidence of dissection or significant stenosis.
[2019-05-09 17:06] VITALS: BP 185/90
== END 2019-05-09 17:06 | disposition home or self-care (01) ==
LOC: ED 11:53
DX: R42 Dizziness and giddiness (principal); M62.830 Muscle spasm of back; M54.2 Cervicalgia; R93.89 Abnormal findings on diagnostic imaging of other specified body structures; I10 Essential (primary) hypertension; F17.200 Nicotine dependence, unspecified, uncomplicated
CPT/HCPCS: 36415; 70496; 70498; 80053; 80320; 83690; 85025; 93005; 99283; 99284; Q9967

== ENCOUNTER 2020-03-01 12:50 | Outpatient (CLI) | payer MEDICAID ==
[2020-03-01 13:11] LABS: CREATININE 0.8 mg/dL (0.4-1.0)
[2020-03-01] MEDS ORDERED: IOVERSOL 320 100 ML VIAL IVP ONE ×2 (13:57→16:27)
--- NOTE | 2020-03-01 15:44 | CT Report ---
PROCEDURE: ANGIO HEAD W/WO INDICATIONS: ANEURYSM OF CAROTID ARTERY CONTRAST: IV CONTRAST: Optiray 320 ml: 80 PO CONTRAST: *NO PO CONTRAST TECHNIQUE: Precontrast 4.5 mm thick angled axial sections acquired from the foramen magnum to the vertex. Afte r the administration of intravenous contrast, 1 mm thick sections acquired through the [place] of Will is. Postcontrast 4.5 mm thick sections then re-acquired from the foramen magnum to the vertex. 3-di mensional stljpbp-taabrjnov-nsvutlpxma (MIP) and/or volume rendering reformats were acquired of the c entral intracranial vasculature. For radiation dose reduction, the following was used: automated ex posure control, adjustment of mA and/or kV according to patient size. COMPARISON: Correlation is made with the accompanying neck CT angiogram. Correlation is also made wi th the prior head CT angiogram dated 05/09/2019 FINDINGS: Image quality: Diagnostic, with note made of motion artifact. Anterior circulation: There is a stable 2 mm aneurysm seen involving the supraclinoid left internal carotid artery, as on series 13 image 47 and on series 20 image 76 and faintly seen on series 21 imag e 69. This is not significantly changed compared to the prior examination. This aneurysm demonstrates a wide neck. The origin of the left posterior communicating artery is not well seen. No new aneurysm s are seen. Intracranial internal carotid arteries are normal in size and flow. The flow within the paired anter ior cerebral arteries is normal and symmetric. The flow within the middle cerebral arteries is pey[place] l and symmetric. The anterior communicating artery is seen. No aneurysms are seen. Posterior circulation: Visualized portions of the vertebral arteries demonstrate normal caliber, and join to form a normal appearing basilar artery. Flow within the posterior cerebral arteries is norm al and symmetric. No aneurysms are seen. CSF spaces: Ventricles are normal in size and shape. Basal cisterns are patent. No extra-axial flu id collections. Brain: No midline shift. No intracranial bleeds or masses. Ely-white matter interface appears int act. Skull and face: Calvarium and facial bones appear intact, without suspicious lesions. A right lens r eplacement can be seen. Sinuses: Mucous retention cysts are seen within the maxillary sinuses, right larger than left. Visua lized sinuses and mastoids are otherwise clear. 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 Reviewed by: Alhaji Kothari MD on 03/01/2020 2:42 PM [place] Approved by: Alhaji Kothari MD on 03/01/2020 2:42 PM [place] Station ID: [id number]
--- NOTE | 2020-03-01 15:48 | CT Report ---
PROCEDURE: ANGIO NECK W INDICATIONS: ICA ANEURYSM CONTRAST: IV CONTRAST: Optiray 320 ml: 80 PO CONTRAST: *NO PO CONTRAST TECHNIQUE: After the administration of intravenous contrast, 1.5 mm axial sections acquired from the aortic arch to the [place]. Coronal 3-D maximum intensity projection (MIP) and/or volume rendering ref ormats were then performed. For radiation dose reduction, the following was used: automated exposur e control, adjustment of mA and/or kV according to patient size. COMPARISON: Correlation is made with the accompanying head CT angiogram, 03/01/2020. Correlation is a lso made with the prior neck CT angiogram of 05/09/2019 (images only, no report) FINDINGS: Image quality: Excellent. Carotid system: The great vessels demonstrate a conventional anatomy as they arise from the aortic a rch. The origins of the common carotid arteries appear patent. The common carotid arteries demonstr ate normal calibers and courses. The bifurcation regions demonstrate atherosclerotic calcification a nd irregularity. There is approximately 30% narrowing seen involving both proximal internal carotid a rteries. Posterior circulation: The origins of the vertebral arteries appear patent. The more super ior portions of the vertebral arteries demonstrate normal course and caliber. They join to form a no rmal appearing basilar artery. Soft tissues: Visualized neck soft tissues demonstrate no suspicious abnormalities. The thyroid gla nd is normal in size. Bones: No suspicious bony lesions. Visualized cervical spine appears normally aligned. Age-approp riate lower cervical spine degenerative changes are seen. Mucous retention cysts are seen within the maxillary sinuses, right larger than left. There is also an air-fluid levels seen within the right ma xillary sinus. IMPRESSION: No hemodynamically significant stenosis is detected. 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 Please see the accompanying head CT angiogram report. The estimate of stenosis included in the report of the imaging study was calculated using the NASCET method Reviewed by: Alhaji Kothari MD on 03/01/2020 2:46 PM AKDT Approved by: Alhaji Kothari MD on 03/01/2020 2:46 PM AKDT Station ID: [id number]
== END 2020-03-01 12:51 | disposition home or self-care (01) ==
LOC: DI 12:50
PROVIDERS: ATTEND Registered Nurse
DX: I72.0 Aneurysm of carotid artery (principal)
CPT/HCPCS: 36415; 70496; 70498; 80048; Q9967

== ENCOUNTER 2020-03-28 14:37 | Outpatient (CLI) | payer MEDICAID ==
--- NOTE | 2020-03-29 15:59 | Mammography Report ---
BILATERAL DIGITAL SCREENING MAMMOGRAM 3D/2D: 03/28/2020 CLINICAL: Routine screening. Comparison is made to exams dated: 03/08/2019 mammogram, 10/20/2017 ultrasound, and 10/20/2017 mammogram - [facility]. There are scattered fibroglandular elements in both breasts. No significant masses, calcifications, or other findings are seen in either breast. There has been no significant interval change. IMPRESSION: NEGATIVE There is no mammographic evidence of malignancy. A 1 year screening mammogram is recommended. This exam was interpreted at Station ID: [id number]. NOTE: For mammograms, a report in lay terms will be sent to the patient. Approximately 15% of breast malignancies will not be visualized mammographically. In the management of a palpable breast mass, a negative mammogram must not discourage biopsy of a clinically suspicious lesion. Electronically Signed By: Fadi Thacker M.D. ddp/penrad:03/28/2020 16:05:31 ACR BI-RADS Category 1: Negative 3341F PARENCHYMAL PATTERN: (A) - The breast(s) demonstrate(s) scattered fibroglandular densities. BI-RADS CATEGORY: (1) - 1 RECOMMENDATION: (ANNUAL) - Recommend routine annual screening mammography. [id number] 1 year screening LATERALITY: (B)
== END 2020-03-28 14:38 | disposition home or self-care (01) ==
LOC: DI 14:37
PROVIDERS: ATTEND Registered Nurse
DX: Z12.31 Encounter for screening mammogram for malignant neoplasm of breast (principal)
CPT/HCPCS: 77063; 77067

== ENCOUNTER 2020-07-22 15:16 | Outpatient (CLI) | payer MEDICAID ==
[2020-07-22 20:07] LABS: BASOPHILS % (AUTO) 0.6 %; EOSINOPHILS # (AUTO) 0.2 10^3/uL (0.0-0.7); HGB - HEMOGLOBIN 13.4 g/dL (12.0-16.0); MEAN CORPUSCULAR HEMOGLOBIN 30.6 pg (27.0-31.0); MEAN CORPUSCULAR HGB CONC 33.2 g/dL (32.0-36.0); MEAN CORPUSCULAR VOLUME 92.2 fL (81.0-99.0); MEAN PLATELET VOLUME 10.4 fL (7.9-10.8); MONOCYTES # (AUTO) 0.6 10^3/uL (0.0-1.0); MONOCYTES % (AUTO) 7.9 %; NEUTROPHILS # (AUTO) 4.2 10^3/uL (1.5-6.6); NEUTROPHILS % (AUTO) 60.4 %; PLT - PLATELET COUNT 230 10^3/uL (130-450); RED BLOOD COUNT 4.38 10^6/uL (4.20-5.40); RED CELL DISTRIBUTION WIDTH 13.4 % (12.0-15.0)
[2020-07-22 20:15] LABS: ALBUMIN/GLOBULIN RATIO 1.4 (1.0-2.2); BILIRUBIN,TOTAL 0.4 mg/dL (0.2-1.0); CALCIUM 9.3 mg/dL (8.5-10.3); CREATININE 0.9 mg/dL (0.4-1.0); TOTAL PROTEIN 6.8 g/dL (6.7-8.2)
== END 2020-07-22 15:17 | disposition home or self-care (01) ==
LOC: LAB.S 15:16
PROVIDERS: ATTEND Physician Assistant
DX: R10.9 Unspecified abdominal pain (principal); J44.9 Chronic obstructive pulmonary disease, unspecified; F17.200 Nicotine dependence, unspecified, uncomplicated; F10.10 Alcohol abuse, uncomplicated; R30.0 Dysuria; I10 Essential (primary) hypertension
CPT/HCPCS: 36415; 80053; 84443; 85025; 87086

== ENCOUNTER 2020-07-25 08:19 | Outpatient (CLI) | payer MEDICAID ==
[2020-07-25 15:20] LABS: CHOLESTEROL 248 mg/dL; HDL CHOLESTEROL 50 mg/dL; LDL CHOLESTEROL,CALCULATED 174 mg/dL; LDL/HDL RATIO 3.5 (<4.4); VLDL CHOLESTEROL 24 mg/dL
== END 2020-07-25 08:20 | disposition home or self-care (01) ==
LOC: LAB.S 08:19
PROVIDERS: ATTEND Physician Assistant
DX: I10 Essential (primary) hypertension (principal); J44.9 Chronic obstructive pulmonary disease, unspecified; F17.200 Nicotine dependence, unspecified, uncomplicated; F10.10 Alcohol abuse, uncomplicated; R10.9 Unspecified abdominal pain; R30.0 Dysuria; I72.0 Aneurysm of carotid artery; R79.9 Abnormal finding of blood chemistry, unspecified
CPT/HCPCS: 36415; 80061; 81001; 82024; 82043; 82533; 82570; 83721

== ENCOUNTER 2020-08-01 08:37 | Outpatient (CLI) | payer MEDICAID ==
[2020-08-01 15:09] LABS: BILIRUBIN,URINE NEGATIVE (NEGATIVE); GLUCOSE, URINE (UA) NEGATIVE (NEGATIVE); KETONES,URINE (UA) NEGATIVE (NEGATIVE); LEUKOCYTE ESTERASE, URINE NEGATIVE (NEGATIVE); NITRITE,URINE NEGATIVE (NEGATIVE); OCCULT BLOOD,URINE NEGATIVE (NEGATIVE); PROTEIN,URINE NEGATIVE (NEGATIVE); UROBILINOGEN,URINE 0.2 (NORMAL) E.U./dL (NORMAL)
[2020-08-01 15:20] LABS: CLARITY,URINE CLEAR (CLEAR)
[2020-08-01 15:21] LABS: BACTERIA,URINE None Seen /HPF (None Seen); RBC,URINE None Seen /HPF (0-5); SQUAMOUS EPITHELIAL CELL,UR RARE Squamous (<= Few)
== END 2020-08-01 08:38 | disposition home or self-care (01) ==
LOC: LAB.S 08:37
PROVIDERS: ATTEND Physician Assistant
DX: R10.9 Unspecified abdominal pain (principal); G89.29 Other chronic pain; R30.0 Dysuria; I10 Essential (primary) hypertension; I72.0 Aneurysm of carotid artery; F10.10 Alcohol abuse, uncomplicated; R89.9 Unspecified abnormal finding in specimens from other organs, systems and tissues
CPT/HCPCS: 81001; 82024

== ENCOUNTER 2020-08-06 09:40 | Outpatient (CLI) | payer MEDICAID ==
[2020-08-06] MEDS ORDERED: IOVERSOL 320 100 ML VIAL IVP ONE ×2 (09:55→14:56)
[2020-08-06] MEDS ORDERED: IOPAMIDOL-300 50 ML VIAL ONE (09:55)
[2020-08-06] MEDS ORDERED: IOPAMIDOL-300 50 ML VIAL PO ONE (14:56)
--- NOTE | 2020-08-06 16:24 | CT Report ---
PROCEDURE: Abdomen/Pelvis W INDICATIONS: ABD PAIN CONTRAST: IV CONTRAST: Optiray 320 ml: 100 PO CONTRAST: Isovue 300 ml50 TECHNIQUE: After the administration of nonionic contrast, 5 mm thick sections acquired from the diaphragms to th e symphysis. 5 mm thick coronal and sagittal reformats were acquired. For radiation dose reduction, the following was used: automated exposure control, adjustment of mA and/or kV according to patient size. COMPARISON: None. FINDINGS: Image quality: Excellent. ABDOMEN: Lung bases: Lung bases are clear. Heart size is normal. Solid organs: Liver and spleen are normal in size and enhancement. Gallbladder appears normal Bili valecnia system is non dilated. Pancreas enhances normally. No adrenal nodules. Kidneys demonstrate nor mal size and enhancement, without hydronephrosis. Extrarenal pelvis is noted at each kidney, as a no rmal variation. Peritoneum and bowel: Bowel loops demonstrate normal wall thickness and caliber. No free fluid or a ir. Nodes and vessels: No retroperitoneal or mesenteric adenopathy by size criteria. Aorta and inferior vena cava are normal in size. Miscellaneous: No ventral hernias. PELVIS: Genitourinary: Bladder wall thickness is normal but there are several right posterior lateral bladde r diverticula, none of which appear obstructed due to the adjacent distal right ureter.. Miscellaneous: No inguinal hernias or adenopathy. Bones: No suspicious bony lesions. No vertebral body compression fractures. IMPRESSION: A source of abdominal pain is not seen. Incidental note is made of several bladder diver ticula at the right posterolateral bladder border, and the overall bladder volume is relatively promi nent in this patient. Targeted single organ bladder ultrasound for function (prevoid and postvoid res idual after proper preparation for latter assessment) likely is warranted. Reviewed by: Lisandro Yee MD on 08/06/2020 4:23 PM PST Approved by: Lisandro Yee MD on 08/06/2020 4:23 PM PST Station ID: [id number]
== END 2020-08-06 09:41 | disposition home or self-care (01) ==
LOC: DI 09:40
PROVIDERS: ATTEND Physician Assistant
DX: R10.9 Unspecified abdominal pain (principal); G89.29 Other chronic pain
CPT/HCPCS: 74177; Q9967

== ENCOUNTER 2021-08-02 08:00 | Outpatient (CLI) | payer MEDICAID ==
[2021-08-02 17:54] LABS: BASOPHILS % (AUTO) 0.6 %; EOSINOPHILS # (AUTO) 0.1 10^3/uL (0.0-0.7); HCT - HEMATOCRIT 43.8 % (37.0-47.0); HGB - HEMOGLOBIN 14.5 g/dL (12.0-16.0); LYMPHOCYTES # (AUTO) 1.7 10^3/uL (1.5-3.5); LYMPHOCYTES % (AUTO) 32.4 %; MEAN CORPUSCULAR HEMOGLOBIN 31.2 pg (27.0-31.0); MEAN CORPUSCULAR HGB CONC 33.1 g/dL (32.0-36.0); MEAN CORPUSCULAR VOLUME 94.2 fL (81.0-99.0); MEAN PLATELET VOLUME 10.8 fL (7.9-10.8); MONOCYTES # (AUTO) 0.5 10^3/uL (0.0-1.0); MONOCYTES % (AUTO) 9.6 %; NEUTROPHILS # (AUTO) 2.9 10^3/uL (1.5-6.6); NEUTROPHILS % (AUTO) 56.2 %; PLT - PLATELET COUNT 245 10^3/uL (130-450); RED BLOOD COUNT 4.65 10^6/uL (4.20-5.40); RED CELL DISTRIBUTION WIDTH 13.4 % (12.0-15.0); WHITE BLOOD COUNT 5.2 x10^3/uL (4.8-10.8)
[2021-08-02 17:56] LABS: CALCIUM 9.5 mg/dL (8.5-10.3); CREATININE 0.6 mg/dL (0.4-1.0); POTASSIUM 4.1 mmol/L (3.5-5.0)
[2021-08-02 17:59] LABS: INR 0.9 (0.8-1.2); PT - PROTHROMBIN TIME 10.1 secs (9.9-12.6)
== END 2021-08-02 23:59 ==
LOC: LAB.S 08:00
PROVIDERS: ATTEND Emergency Medicine
DX: I67.1 Cerebral aneurysm, nonruptured (principal)
CPT/HCPCS: 36415; 80048; 85025; 85610

== ENCOUNTER 2021-08-14 07:58 | Outpatient (CLI) | payer MEDICAID ==
[2021-08-14] MEDS ORDERED: IOVERSOL 320 100 ML VIAL IVP ONE ×2 (08:11→08:42)
--- NOTE | 2021-08-14 16:54 | CT Report ---
PROCEDURE: ANGIO HEAD W/WO INDICATIONS: ANEURYSM CONTRAST: IV CONTRAST: Optiray 320 ml: 80 PO CONTRAST: *NO PO CONTRAST TECHNIQUE: Precontrast 4.5 mm thick angled axial sections acquired from the foramen magnum to the vertex. Afte r the administration of intravenous contrast, 1 mm thick sections acquired through the [place] of [place] is. Postcontrast 4.5 mm thick sections then re-acquired from the foramen magnum to the vertex. 3-di mensional gpgvydq-oxtossbbb-cvpaogzyej (MIP) and/or volume rendering reformats were acquired of the c entral intracranial vasculature. For radiation dose reduction, the following was used: automated ex posure control, adjustment of mA and/or kV according to patient size. COMPARISON: CTA head and neck 03/01/2020 FINDINGS: Image quality: Excellent. Anterior circulation: Intracranial internal carotid arteries are normal in size and flow. As identif ied on prior exam, there is a 2 mm supraclinoid left internal carotid artery aneurysm. It is unchange d compared to prior exams. No new areas of aneurysmal dilation are identified. The flow within the pa ired anterior cerebral arteries is normal and symmetric. The flow within the middle cerebral arterie s is normal and symmetric. The anterior communicating artery is seen. Posterior circulation: Visualized portions of the vertebral arteries demonstrate normal caliber, and join to form a normal appearing basilar artery. Flow within the posterior cerebral arteries is norm al and symmetric. No aneurysms are seen. CSF spaces: Ventricles are normal in size and shape. Basal cisterns are patent. No extra-axial flu id collections. Brain: No midline shift. No intracranial bleeds or masses. [place]-white matter interface appears int act. Skull and face: Calvarium and facial bones appear intact, without suspicious lesions. Sinuses: Visualized sinuses and mastoids are clear. IMPRESSION: Stable appearance of 2 mm left supraclinoid internal carotid artery aneurysm. Reviewed by: Marly Davison MD on 08/14/2021 4:53 PM PST Approved by: Marly Davison MD on 08/14/2021 4:53 PM PST Station ID: [id number]
== END 2021-08-14 07:59 | disposition home or self-care (01) ==
LOC: DI 07:58
PROVIDERS: ATTEND Emergency Medicine
DX: I67.1 Cerebral aneurysm, nonruptured (principal); I72.0 Aneurysm of carotid artery
CPT/HCPCS: 70496; Q9967

== ENCOUNTER 2023-06-29 08:00 | Outpatient (CLI) | payer MEDICAID | END 2023-06-29 23:59 | disposition home or self-care (01) | LOC: LAB.S 08:00 | PROVIDERS: ATTEND Physician Assistant | DX: L72.3 Sebaceous cyst (principal) | CPT/HCPCS: 87070; 87205 ==

== ENCOUNTER 2024-02-16 08:00 | Outpatient (CLI) | payer MEDICAID, OTHER ==
--- NOTE | 2024-02-17 08:39 | XRAY Report ---
PROCEDURE: Knee 3V LT INDICATIONS: PAIN IN LEFT KNEE TECHNIQUE: AP, lateral, and oblique view of the left knee COMPARISON: None. FINDINGS: No acute fracture or dislocation. The joint spaces are preserved. No significant joint effusion. Smal l subcentimeter intra-articular body along the superior aspect of the medial femoral condyle. IMPRESSION: No acute fracture or dislocation of the left knee. Reviewed by: Ace Frances MD on 02/17/2024 8:37 AM PDT Approved by: Ace Frances MD on 02/17/2024 8:37 AM PDT Station ID: [id number]
== END 2024-02-16 23:59 | disposition home or self-care (01) ==
LOC: DI.S 08:00
PROVIDERS: ATTEND Registered Nurse
DX: M25.562 Pain in left knee (principal); M25.369 Other instability, unspecified knee